=== PATIENT | male | born 1995 | race Caucasian/White ===

== ENCOUNTER 2019-11-06 14:17 | Emergency (ER) | payer MEDICAID ==
[2019-11-06] MEDS ORDERED: ONDANSETRON 4 MG TAB.RAPDIS PO ONE (14:33)
--- NOTE | 2019-11-06 14:35 | ER Document Report ---
ED Medical Screen (RME) - General Stated Complaint: DIZZINESS Time Seen by Provider: 11/06/19 14:26 - HPI Notes: 11/06/19 14:32 24-year-old male with a history of hepatitis C presents to the emergency room for evaluation of weakness, dizziness, shortness of breath and nausea for the last 4 hours that has become progressively worse. Patient states that he did eat a banana and a protein shake this morning for breakfast, denies anything for lunch. Sudden onset. Denies having any issues similar to this prior. Tried to drink some orange juice to see if it was his blood sugar but this did not help. Denies any fevers chills, chest pain, abdominal pain, vomiting or diarrhea PHYSICAL EXAMINATION: Vital signs reviewed. GENERAL: Well-appearing, well-nourished and in no acute distress. HEAD: Atraumatic, normocephalic. NECK: Normal range of motion CV: Heart regular rate and rhythm LUNGS: No respiratory distress NEUROLOGICAL: Normal speech PSYCH: Normal mood, normal affect. MDM: Patient seen and examined for rapid initial assessment. Vital signs reviewed. A comprehensive ED assessment and evaluation of the patient, analysis of test results and completion of the medical decision making process will be conducted by additional ED providers. *Note is created using voice recognition software and may contain spelling, syntax or grammatical errors. Physical Exam - Vital signs Vitals: Temp Pulse Resp BP Pulse Ox 98.5 F 91 16 150/59 H 99 11/06/19 14:20 11/06/19 14:20 11/06/19 14:20 11/06/19 14:20 11/06/19 14:20 Course - Vital Signs Vital signs: Temp Pulse Resp BP Pulse Ox 98.5 F 91 16 150/59 H 99 11/06/19 14:20 11/06/19 14:20 11/06/19 14:20 11/06/19 14:20 11/06/19 14:20
--- NOTE | 2019-11-06 15:11 | RADIOLOGY REPORT (SQ) ---
EXAM DESCRIPTION: CHEST SINGLE VIEW IMAGES COMPLETED DATE/TIME: 11/06/2019 3:02 pm REASON FOR STUDY: dizziness, near syncope COMPARISON: None. EXAM PARAMETERS: NUMBER OF VIEWS: One view. TECHNIQUE: Single frontal radiographic view of the chest acquired. RADIATION DOSE: NA LIMITATIONS: None. FINDINGS: LUNGS AND PLEURA: No opacities, masses or pneumothorax. No pleural effusion. MEDIASTINUM AND HILAR STRUCTURES: No masses. Contour normal. HEART AND VASCULAR STRUCTURES: Heart normal in size. Normal vasculature. BONES: No acute findings. HARDWARE: None in the chest. OTHER: No other significant finding. IMPRESSION: NO ACUTE RADIOGRAPHIC FINDING IN THE CHEST. TECHNICAL DOCUMENTATION: JOB ID: [id number] 2010 [employer]- All Rights Reserved Reading location - IP/workstation name: [email or web address]
--- NOTE | 2019-11-06 15:22 | ER Document Report ---
Entered by ISIDRA HDZ SCRIBE 11/06/19 1516 Acting as scribe for:INDIRA HAYES DO ED General - General Chief Complaint: Near Syncope Stated Complaint: DIZZINESS Time Seen by Provider: 11/06/19 14:26 Information source: Patient Notes: This 24-year-old male with hepatitis C presents to the emergency department complaining of near syncope today. Patient explains that he felt at baseline when he woke up this morning and then it just "hit". Patient said that he felt weak about like he "was about to pass out". Patient said that he has "felt out of it all day". Patient said that he had associated shortness of breath because he was taking "deep breaths". Patient said that he usually drinks alcohol occasionally but within the last two days, he has had around 20 beers. Patient denies vomiting and abdominal pain. Patient has a history of drug use which was the cause of hepatitis C. 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 - Related Data Allergies/Adverse Reactions: No Known Allergies Allergy (Verified 11/06/19 14:33) Past Medical History - General Information source: Patient - Social History Smoking Status: Current Every Day Smoker Cigarette use (# per day): Yes Chew tobacco use (# tins/day): No Frequency of alcohol use: Occasional Drug Abuse: None Occupation: swimming pool installer and servicer Family History: None Patient has suicidal ideation: No Patient has homicidal ideation: No GI Medical History: Reports: Hx Hepatitis - C Infectious Medical History: Reports: Hx Hepatitis - C Surgical Hx: Negative Review of Systems - Review of Systems Constitutional: See HPI, Weakness EENT: No symptoms reported Cardiovascular: No symptoms reported Respiratory: See HPI, Short of breath Gastrointestinal: See HPI. denies: Abdominal pain, Vomiting Genitourinary: No symptoms reported Male Genitourinary: No symptoms reported Musculoskeletal: No symptoms reported Skin: No symptoms reported Hematologic/Lymphatic: No symptoms reported Neurological/Psychological: No symptoms reported -: Yes All other systems reviewed and negative Physical Exam - Vital signs Vitals: Temp Pulse Resp BP Pulse Ox 98.5 F 91 16 150/59 H 99 11/06/19 14:20 11/06/19 14:20 11/06/19 14:20 11/06/19 14:20 11/06/19 14:20 - Notes Notes: Physical Exam: General: Alert, appears well. HEENT: Normocephalic. Atraumatic. PERRL. Extraocular movements intact. Oropharynx clear. Neck: Supple. Non-tender. Respiratory: No respiratory distress. Clear and equal breath sounds bilaterally. Cardiovascular: Regular rate and rhythm. Abdominal: Normal Inspection. Non-tender. No distension. Normal Bowel Sounds. Back: No gross abnormalities. Extremities: Moves all four extremities. Upper extremities: Normal inspection. Normal ROM. Lower extremities: Normal inspection. No edema. Normal ROM. Neurological: Normal cognition. AAOx4. Normal speech. Psychological: Normal affect. Normal Mood. Skin: Warm. Dry. Normal color. Course - Re-evaluation Re-evalutation: 11/06/19 16:13 MDM 24 year old male arrives with weakness and reports near syncope. No acute illness. Has consumed 20 beers in last 2 days. This is reportedly more than he would typically drink. No chest pain or sob or concerning symptoms with discussing symptoms with him. He does have underlying hepatitis c and used to abuse opiods but has not in about a year. He is safe to follow up. - Vital Signs Vital signs: Temp Pulse Resp BP Pulse Ox 98.5 F 91 16 156/74 H 99 11/06/19 14:20 11/06/19 14:20 11/06/19 14:20 11/06/19 15:00 11/06/19 14:20 - Laboratory Result Diagrams: 11/06/19 14:29 11/06/19 14:29 Laboratory results interpreted by me: 11/06/19 11/06/19 14:29 14:29 RBC 5.61 H Hgb 17.7 H Carbon Dioxide 31 H AST 79 H ALT 141 H Albumin 5.1 H - EKG Interpretation by Nv EKG shows normal: Sinus rhythm Rate: Normal Rhythm: NSR - NSR Nl Barry [address] elevation or depression my interpr etation. Discharge - Discharge Clinical Impression: Near syncope Hepatitis C Qualifiers: Viral hepatitis chronicity: unspecified Hepatic coma status: without hepatic coma Qualified Code(s): B19.20 - Unspecified viral hepatitis C without hepatic coma Condition: Good Disposition: HOME, SELF-CARE Instructions: Near Syncopal Episode ([facility]), Weakness ([facility]) Additional Instructions: Limit the use of alcohol if you choose to drink alcohol. Rest. Please return here for any problems or any concerns including but not limited to chest pain, shortness of breath or other concerns. Forms: Smoking Cessation Education I personally performed the services described in the documentation, reviewed and edited the documentation which was dictated to the scribe in my presence, and it accurately records my words and actions.
[2019-11-06 15:24] LABS: ABSOLUTE EOSINOPHILS # (AUTO) 0.1 10^3/uL (0.0-0.6); ABSOLUTE LYMPHOCYTES (AUTO) 1.2 10^3/uL (0.5-4.7); ABSOLUTE MONOCYTES (AUTO) 0.6 10^3/uL (0.1-1.4); ABSOLUTE NEUT (AUTO) 6.3 10^3/uL (1.7-8.2); BASOPHILS % (AUTO) 0.3 % (0-2); EOSINOPHILS % (AUTO) 0.7 % (0-6); HEMATOCRIT 49.9 % (37.9-51.0); HEMOGLOBIN 17.7 g/dL (13.5-17.0); LYMPHOCYTES % (AUTO) 14.5 % (13-45); MEAN CORPUSCULAR HEMOGLOBIN 31.6 pg (27.0-33.4); MEAN CORPUSCULAR HGB CONC 35.4 g/dL (32.0-36.0); MEAN CORPUSCULAR VOLUME 89 fl (80-97); MONOCYTES % (AUTO) 7.9 % (3-13); PLATELET COUNT 156 10^3/uL (150-450); RED BLOOD COUNT 5.61 10^6/uL (4.35-5.55); RED CELL DISTRIBUTION WIDTH 12.7 % (11.5-14.0); SEGMENTED NEUTROPHILS % (AUTO) 76.6 % (42-78); TOTAL CELLS COUNTED % (AUTO) 100 %; WHITE BLOOD COUNT 8.2 10^3/uL (4.0-10.5)
[2019-11-06 15:44] LABS: APPEARANCE,URINE CLEAR; BILIRUBIN,URINE NEGATIVE (NEGATIVE); COLOR,URINE STRAW; GLUCOSE, URINE NEGATIVE (NEGATIVE); KETONES,URINE NEGATIVE (NEGATIVE); LEUKOCYTE ESTERASE,URINE NEGATIVE (NEGATIVE); NITRITE,URINE NEGATIVE (NEGATIVE); PROTEIN,URINE NEGATIVE (NEGATIVE); URINE SPECIFIC GRAVITY 1.006; UROBILINOGEN,URINE NEGATIVE mg/dL (<2.0)
[2019-11-06 15:49] LABS: ALBUMIN 5.1 g/dL (3.5-5.0); ALKALINE PHOSPHATASE 97 U/L (38-126); ANION GAP 6 (5-19); ASPARTATE AMINO TRANSFERASE 79 U/L (17-59); BILIRUBIN,TOTAL 0.6 mg/dL (0.2-1.3); BLOOD UREA NITROGEN 16 mg/dL (7-20); CALCIUM 10.1 mg/dL (8.4-10.2); CARBON DIOXIDE 31 mmol/L (22-30); CHLORIDE 101 mmol/L (98-107); GLUCOSE 96 mg/dL (75-110); POTASSIUM 4.7 mmol/L (3.6-5.0); TOTAL PROTEIN 8.2 g/dL (6.3-8.2)
[2019-11-06 16:48] VITALS: BP 148/58
--- NOTE | 2019-11-06 19:31 | EKG REPORT ---
SEVERITY:- NORMAL ECG - SINUS RHYTHM ST ELEV, PROBABLE NORMAL EARLY REPOL PATTERN : Confirmed by: Jovany Remy MD 06-Nov-2019 19:31:12
== END 2019-11-06 16:45 | disposition home or self-care (01) ==
LOC: ER 14:17
DX: R55 Syncope and collapse (principal); B19.20 Unspecified viral hepatitis C without hepatic coma; R06.02 Shortness of breath; R53.1 Weakness; F17.210 Nicotine dependence, cigarettes, uncomplicated
CPT/HCPCS: 36415; 71045; 80053; 81001; 82962; 83735; 84443; 84484; 85025; 93005; 93010; 99284